=== PATIENT | male | born 2000 | race Caucasian/White ===

== ENCOUNTER 2024-11-15 04:04 | Emergency (ER) | payer SELFPAY ==
[~2024-11-15] VITALS: Ht 167.6 cm; Wt 61.4 kg
[2024-11-15 06:17] VITALS: BP 119/65; PULSE 72; RESP 18; TEMP 97.3; O2SAT 99
[2024-11-15 06:21] LABS: CALCIUM, TOTAL 8.9 mg/dL (8.8-10.5); CARBON DIOXIDE 35 mmol/L (22-29); CREATININE 0.75 mg/dL (0.60-1.30); GLOMERULAR FILTR. RATE CALC > 60 mL/min (>60); GLUCOSE,RANDOM 83 mg/dL (70-110); UREA NITROGEN, BLOOD 12 mg/dL (7-18)
[2024-11-15 06:27] LABS: ANION GAP 4 mmol/L (8-16); CHLORIDE 103 mmol/L (98-107); POTASSIUM 4.2 mmol/L (3.5-5.1); SODIUM SERUM 142 mmol/L (136-145)
[2024-11-15 06:38] LABS: BASOPHILS % (AUTO) 0.5 % (0.0-2.0); EOSINOPHILS % (AUTO) 1.3 % (1.0-6.0); HEMATOCRIT 42.2 % (41-53); HEMOGLOBIN 14.5 g/dL (13.5-17.5); LYMPHOCYTES # (AUTO) 1.7 K/uL (1.0-4.8); LYMPHOCYTES % (AUTO) 22.9 % (22.0-44.0); MEAN CORPUSCULAR HGB CONC 34.4 G/dL (31.0-37.0); MEAN CORPUSCULAR VOLUME 87 fL (80-100); MONOCYTES # (AUTO) 0.6 K/uL (0.1-1.0); MONOCYTES % (AUTO) 8.7 % (2.0-9.0); NEUTROPHILS # (AUTO) 4.9 K/uL (1.8-7.7); NEUTROPHILS % (AUTO) 66.6 % (40.0-70.0); PLATELET COUNT (AUTO) 245 K/uL (150-450); RED BLOOD CELL COUNT(AUTO) 4.84 MIL/uL (4.50-5.90); WHITE BLOOD COUNT (AUTO) 7.3 K/uL (4.5-11.0)
[2024-11-15 06:42] LABS: ALCOHOL, BLOOD (SERUM) < 3 mg/dL (0-10)
[2024-11-15 06:45] LABS: COVID AG,FIA SOURCE NASAL SWAB
[2024-11-15 07:44] LABS: SARS-COV2 (COVID) ANTIGEN,FIA Negative (Negative)
[2024-11-15 07:54] LABS: ALCOHOL, URINE DRUG SCREEN NEGATIVE (NEGATIVE); AMPHET/METH SCREEN,URINE NEGATIVE (NEGATIVE); BARBITURATE SCREEN, URINE NEGATIVE (NEGATIVE); BENZODIAZEPINES SCREEN,URINE NEGATIVE (NEGATIVE); CANNABINOID SCREEN,URINE POSITIVE (NEGATIVE); COCAINE SCREEN,URINE NEGATIVE (NEGATIVE); METHADONE SCREEN, URINE NEGATIVE (NEGATIVE); OPIATE SCREEN,URINE NEGATIVE (NEGATIVE); PHENCYCLIDINE SCREEN,URINE NEGATIVE (NEGATIVE)
[2024-11-15] MEDS ORDERED: QUET100T34 PO (11:58)
[2024-11-15] MEDS ORDERED: GABA-1181 PO (11:58)
[2024-11-15] MEDS ORDERED: FOLI-130 PO (12:01)
== END 2024-11-15 08:59 ==
LOC: EMS 04:13
DX: F32.A Depression, unspecified (principal); R45.851 Suicidal ideations; Z20.822 Contact with and (suspected) exposure to COVID-19
CPT/HCPCS: 99285; 87426; 80048; 85025; 36415; 80307; G0480